=== PATIENT | male | born 1965 | race Caucasian/White ===

== ENCOUNTER 2019-04-07 01:25 | Emergency (ER) | payer MEDICAID ==
[~2019-04-07] VITALS: Ht 188 cm; Wt 105.0 kg
[2019-04-07 01:29] VITALS: BP 187/105
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
--- NOTE | 2019-04-07 01:57 | NUR ---
ER MD DHALIWAL IN TO ASSESS PT
[2019-04-07] MEDS ORDERED: LORazepam 0.5MG TABLET PO ONE (02:00)
--- NOTE | 2019-04-07 02:00 | NUR ---
pt denies SI/HI at this time. pt with no past SA
[2019-04-07 02:12] LABS: BASOPHILS # (AUTO) 0.08 x10^3/uL (0-0.1); BASOPHILS % (AUTO) 1 % (0-1); EOSINOPHILS % (AUTO) 6 % (1-7); LYMPHOCYTES # (AUTO) 2.55 x10^3/uL (1-3.4); LYMPHOCYTES % (AUTO) 31 % (22-44); MD NO; MEAN CORPUSCULAR HEMOGLOBIN 31.9 pg (27.5-34.5); MEAN CORPUSCULAR VOLUME 93.8 fL (81-97); MEAN PLATELET VOLUME 8.1 fL (7.4-10.4); MONOCYTES # (AUTO) 0.71 x10^3/uL (0.2-0.8); MONOCYTES % (AUTO) 9 % (2-9); NEUTROPHILS # (AUTO) 4.46 x10^3/uL (1.8-6.8); NEUTROPHILS % (AUTO) 54 % (42-75); PLATELET COUNT 277 x10^3/uL (130-400); RED BLOOD COUNT 4.36 x10^6/uL (4.38-5.82)
[2019-04-07 02:25] LABS: ALBUMIN 3.8 g/dL (3.4-5.0); ANION GAP 6 mmol/L (5-15); CALCIUM 8.9 mg/dL (8.5-10.1); CHLORIDE 107 mmol/L (98-107); CREATININE 0.96 mg/dL (0.7-1.3); SALICYLATE LEVEL < 1.7 mg/dL (2.8-20.0)
[2019-04-07] MEDS ORDERED: LORazepam 0.5MG TABLET ONE (02:26)
--- NOTE | 2019-04-07 02:38 | NUR ---
telepsych paged at this time. they state it will be at least an hour due to high call volume.
--- NOTE | 2019-04-07 02:40 | NUR ---
pt offered ativan for anxiety per er md order. pt states "Katernya heard a lot of bad things about ativan" I gave information to pt regarding drug. pt states he wants to research ativan on the internet before accepting medication.
--- NOTE | 2019-04-07 02:52 | NUR ---
telepsych bot at bedside
[2019-04-07 02:55] LABS: AMPHETAMINE SCREEN, URINE Negative (Negative); BARBITURATE SCREEN, URINE Negative (Negative); BENZODIAZEPINE SCREEN, URINE Negative (Negative); CANNABINOID SCREEN, URINE Positive (Negative); COCAINE SCREEN, URINE Negative (Negative); METHADONE SCREEN, URINE Negative (Negative); OPIATE SCREEN, URINE Negative (Negative)
--- NOTE | 2019-04-07 03:38 | NUR ---
pt decided he would like to try the ativan for anxiety. pt medicated per emar.
--- NOTE | 2019-04-07 05:05 | NUR ---
awaiting soc for telepsych consult.
--- NOTE | 2019-04-07 06:00 | NUR ---
pt resting on gurney. respirations even and unlabored. still awaiting telepsych consult.
--- NOTE | 2019-04-07 06:51 | NUR ---
REPORT TO NOHELIA WESTBROOK
--- NOTE | 2019-04-07 06:53 | NUR ---
REPORT RECEIVED FROM NOHELIA WHYTE. PLAN OF CARE DISCUSSED.
--- NOTE | 2019-04-07 07:03 | NUR ---
PATIENT'S CAME IN TO ROOM, WAS DISTRESSED. TELEPSYCH CAME ON, WAS ESCORTED TO WAITING ROOM WHILE PATIENT IS ON CONSULT.
--- NOTE | 2019-04-07 07:34 | NUR ---
WAITING FOR PSYCHOLOGIST TO COME ONLINE TO TELEPSYCH.
--- NOTE | 2019-04-07 08:08 | NUR ---
TALKED TO TELEPSYCH MD ON PHONE, UPDATED MD ON PT CONDITION, TELEPSYCH DOC WILL CONNECT TO BOT IN ROOM.
--- NOTE | 2019-04-07 08:27 | NUR ---
TELEPSYCH IN PROGRESS.
--- NOTE | 2019-04-07 08:37 | NUR ---
TELEPSYCH DOCTOR CALLED RN, PLAN OF CARE DISCUSSED. WAITING FOR MD TO MD PHONE CALL TO DISCUSS FURTHER ORDERS.
--- NOTE | 2019-04-07 09:24 | NUR ---
Patient/Caregiver given discharge instructions and they have confirmed that they understand the instructions. Patient ambulatory with steady gait.
== END 2019-04-07 09:25 | disposition home or self-care (01) ==
LOC: ED 02:19
DX: F32.9 Major depressive disorder, single episode, unspecified (principal); F41.1 Generalized anxiety disorder; R45.851 Suicidal ideations
CPT/HCPCS: 36415; 80048; 80307; 82040; 84439; 84443; 85025; 99284

== ENCOUNTER 2019-08-06 12:45 | Emergency (ER) | payer MEDICAID ==
[~2019-08-06] VITALS: Ht 188 cm; Wt 104.5 kg
[2019-08-06] MEDS ORDERED: ESCI10TA PO (13:11)
--- NOTE | 2019-08-06 13:11 | NUR ---
Pt presents to ED by EMS from home with c/o depression and hypertension. Pt denies SI or HI, or SI in past, or past SA. Pt tearful and states he finished his last prescribed medicaiton for depression and needs a refill. Pt states he has high blood pressure (at baseline) and his meds he use to take for it never controlled it. Pt connected to NIBP cuff and continous pulse ox monitor. Call light within reach. No other needs expressed at this time. Pending psych DRILL SHARPENER OPERATOR to meet with pt.
[2019-08-06] MEDS ORDERED: PLEASE ENTER HEIGHT AND WEIGHT MC SCH (13:30)
--- NOTE | 2019-08-06 14:43 | NUR ---
Pt resting on gurney with eyes closed and unlabored respirations with even chest rise and fall. Pt has pulse ox monitor on and call light within reach.
--- NOTE | 2019-08-06 15:29 | NUR ---
PSYCH PENSIONS RETIREMENT PLAN SPECIALIST AT BEDSIDE. No needs expressed at this time.
[2019-08-06] MEDS ORDERED: LISINOPRIL 20 MG TABLET ONE (16:18)
--- NOTE | 2019-08-06 16:22 | NUR ---
Provided pt medication per EMAR. PT appreciative.
[2019-08-06] MEDS ORDERED: LISINOPRIL 20 MG TABLET PO ONE (16:30)
[2019-08-06 16:53] LABS: ALANINE AMINOTRANSFERASE 28 U/L (12-78); ANION GAP 7 mmol/L (5-15); CALCIUM 8.8 mg/dL (8.5-10.1); CHLORIDE 107 mmol/L (98-107); CREATININE 0.85 mg/dL (0.7-1.3)
[2019-08-06 16:54] LABS: SALICYLATE LEVEL < 1.7 mg/dL (2.8-20.0)
[2019-08-06 16:56] LABS: BASOPHILS # (AUTO) 0.09 x10^3/uL (0-0.1); BASOPHILS % (AUTO) 1 % (0-1); EOSINOPHILS # (AUTO) 0.23 x10^3/uL (0-0.4); EOSINOPHILS % (AUTO) 2 % (1-7); LYMPHOCYTES # (AUTO) 3.18 x10^3/uL (1-3.4); LYMPHOCYTES % (AUTO) 33 % (22-44); MD NO; MEAN CORPUSCULAR HEMOGLOBIN 31.7 pg (27.5-34.5); MEAN CORPUSCULAR HGB CONC 34.1 g/dL (33.2-36.2); MEAN CORPUSCULAR VOLUME 92.9 fL (81-97); MEAN PLATELET VOLUME 8.4 fL (7.4-10.4); MONOCYTES # (AUTO) 0.62 x10^3/uL (0.2-0.8); MONOCYTES % (AUTO) 7 % (2-9); NEUTROPHILS # (AUTO) 5.44 x10^3/uL (1.8-6.8); NEUTROPHILS % (AUTO) 57 % (42-75); PLATELET COUNT 273 x10^3/uL (130-400); RED BLOOD COUNT 4.94 x10^6/uL (4.38-5.82); RED CELL DISTRIBUTION WIDTH 13.3 % (9.4-14.8)
[2019-08-06 17:04] LABS: ALKALINE PHOSPHATASE 62 U/L (45-117); BILIRUBIN,TOTAL 0.6 mg/dL (0.2-1.0); TOTAL PROTEIN 7.8 g/dL (6.4-8.2)
--- NOTE | 2019-08-06 17:13 | NUR ---
Pt resting on gurney on right lateral side with spo2% monitor and NIBP cuff on. Offered pt food and water, pt declined. Pt aware of need of urine sample, UA cup provided. Pt aware of plan of care as discussed with MD and GLASSWARE ENGRAVER. Call light within reach.
[2019-08-06 17:53] VITALS: BP 134/84
--- NOTE | 2019-08-06 17:53 | NUR ---
Pt resting on gurney. Spouse at bedside. No needs expressed at this time. Up dated vital signs. Call light within reach. Pt aware of UA needed.
--- NOTE | 2019-08-06 18:54 | NUR ---
Provided bedside report to NOHELIA Jaime. All questions answered. NOHELIA Jaime to assume care of pt.
--- NOTE | 2019-08-06 18:54 | NUR ---
REPORT FROM DAYNA CUADRA DISCHARGED AT THIS TIOME WITH IN NAD
== END 2019-08-06 18:56 | disposition home or self-care (01) ==
LOC: ED 16:42
DX: F32.9 Major depressive disorder, single episode, unspecified (principal); I10 Essential (primary) hypertension
CPT/HCPCS: 36415; 80053; 80307; 84443; 85025; 99284